=== PATIENT | female | born 1990 | race Caucasian/White ===

== ENCOUNTER → 2017-03-25 | Outpatient (CLI) | payer OTHER ==
--- NOTE | 2017-03-25 15:43 | US ---
EXAMINATION TYPE: US abdomen comp/pelvis limited DATE OF EXAM: 03/25/2017 COMPARISON: NONE CLINICAL HISTORY: R10.84 ABD Pain,K59.1Functional diarrhea. Pt states vomiting, diarrhea EXAM MEASUREMENTS: Liver Length: 18.3 cm Gallbladder Wall: 0.3 cm CBD: 0.5 cm Spleen: 12.3 cm Right Kidney: 11.4 x 4.7 x 4.8 cm Left Kidney: 10.9 x 4.5 x 4.5 cm Pancreas: wnl Liver: Enlarged, otherwise appeared wnl Gallbladder: Slightly contracted, pt states she is NPO CBD: wnl Spleen: wnl Right Kidney: Cyst, increased in size since previous= 3.3 x 3.2 x 3.1 cm Left Kidney: wnl Upper IVC: wnl Abd Aorta: wnl Bladder: wnl Bilateral Jets Seen Yes IMPRESSION: 1. Right renal cyst 2. Borderline size gallbladder wall thickening
== END | disposition home or self-care (01) ==
LOC: RADUSWWP 09:57
PROVIDERS: ATTEND Family Medicine
DX: N28.1 Cyst of kidney, acquired (principal); N32.89 Other specified disorders of bladder; K59.1 Functional diarrhea
CPT/HCPCS: 76700; 76857

== ENCOUNTER → 2017-07-26 | Outpatient (CLI) | payer OTHER ==
--- NOTE | 2017-07-26 16:55 | XR ---
EXAMINATION TYPE: XR forearm RT DATE OF EXAM: 07/26/2017 CLINICAL HISTORY: Right arm pain since blood draw for one week ago. TECHNIQUE: Two views of the right forearm are obtained. COMPARISON: None. FINDINGS: There is no acute fracture or dislocation seen in the right radius or ulna. There is suspe cted small spur at level of the elbow. Visualized wrist joint is unremarkable. The overlying soft tis jac appears within normal limits without metallic linear foreign body identified. IMPRESSION: There is no acute fracture or dislocation seen in the right radius or ulna.
== END | disposition home or self-care (01) ==
LOC: RADXRMAIN 16:26
PROVIDERS: ATTEND Emergency Medicine
DX: M79.631 Pain in right forearm (principal)